=== PATIENT | male | born 2000 | race Caucasian/White ===

== ENCOUNTER 2022-05-29 11:46 | Emergency (ER) | payer MEDICAID ==
[~2022-05-29] VITALS: Ht 177.8 cm; Wt 77.0 kg
[2022-05-29] MEDS ORDERED: MORPHINE SULFATE 4 MG/ML CPJ (NOT FOR IM USE) IV ONE (12:00)
[2022-05-29] MEDS ORDERED: ONDANSETRON HCL 4MG/2ML INJ IV ONE (12:30)
[2022-05-29 12:34] LABS: BASOPHILS % 0.2 % (0.0-2.0); EOSINOPHILS % 0.2 % (0.0-5.0); HEMATOCRIT. 45.9 % (42.0-52.0); HEMOGLOBIN. 16.1 g/dL (14.0-18.0); LYMPHOCYTES % 15.8 % (20.0-50.0); MEAN CORPUSCULAR HEMOGLOBIN 30.7 pg (28.0-32.0); MEAN CORPUSCULAR VOLUME 87.3 fL (80.0-94.0); MEAN PLATELET VOLUME 6.6 fl (7.4-10.4); MONOCYTES % 6.3 % (2.0-8.0); NEUTROPHILS % 77.5 % (40.0-76.0); PLATELET 414 x1000/uL (130-400); RED BLOOD CELL COUNT 5.26 mill/uL (4.7-6.1); RED CELL DISTRIBUTION WIDTH 13.4 % (11.6-14.6)
[2022-05-29 12:39] LABS: CHLORIDE 103 mEq/L (98-107)
[2022-05-29 12:44] LABS: INR 1.1; PROTHROMBIN TIME 12.2 sec (9.6-11.0)
[2022-05-29 18:57] LABS: CLARITY URINE TURBID (CLEAR); COLOR URINE ORANGE (YELLOW); KETONES URINE 1+ (NEGATIVE); LEUKOCYTE ESTERASE URINE 1+ (NEGATIVE); NITRITE URINE NEGATIVE (NEGATIVE); OCCULT BLOOD URINE 3+ (NEGATIVE); PH URINE 7.5 (4.5-8.0); PROTEIN URINE 1+ (NEGATIVE); SPECIFIC GRAVITY URINE 1.021 (1.005-1.030)
[2022-05-29] MEDS ORDERED: TAMS-11 MT (20:25)
[2022-05-29] MEDS ORDERED: SULF1TAB48 MT (20:25)
[2022-05-29] MEDS ORDERED: T3 PO (20:25)
[2022-05-29] MEDS ORDERED: IBUP-2029 MT (20:25)
[2022-05-29] MEDS ORDERED: KETOROLAC 30MG/ML VIAL IV ONE (20:30)
[2022-05-29 21:18] VITALS: BP 113/54
== END 2022-05-29 21:19 | disposition home or self-care (01) ==
LOC: ER 12:44
DX: N20.2 Calculus of kidney with calculus of ureter (principal); N39.0 Urinary tract infection, site not specified; Z87.828 Personal history of other (healed) physical injury and trauma; Z98.890 Other specified postprocedural states
CPT/HCPCS: 36415; 74176; 76870; 80053; 81003; 83690; 85025; 85610; 93976; 96374; 96375; 99285; J1885; J2270; J2405